=== PATIENT | male | born 1970 ===

== ENCOUNTER 2018-05-22 15:33 | Outpatient (CLI) | payer OTHER | END 2018-05-22 15:34 | disposition home or self-care (01) | LOC: C.RADIC 15:33 | DX: R06.02 Shortness of breath (principal) ==

== ENCOUNTER 2018-05-24 14:45 | Outpatient (CLI) | payer OTHER | END 2018-05-24 14:46 | disposition home or self-care (01) | LOC: C.RADIC 14:45 ==